=== PATIENT | female | born 1955 ===

== ENCOUNTER 2017-10-13 08:15 | Outpatient (CLI) | payer OTHER | END 2017-10-13 08:19 | disposition home or self-care (01) | LOC: SONOGRAMA 08:15 | DX: E04.2 Nontoxic multinodular goiter (principal) ==

== ENCOUNTER 2021-12-31 14:56 | Outpatient (CLI) | payer OTHER | END 2021-12-31 14:59 | disposition home or self-care (01) | LOC: SONOGRAMA 14:56 | PROVIDERS: ATTEND Pathology Anatomic Pathology | DX: E04.2 Nontoxic multinodular goiter (principal) ==